=== PATIENT | female | born 1990 | race Caucasian/White ===

== ENCOUNTER 2017-09-24 18:15 | Emergency (ER) | payer SELFPAY | END 2017-09-24 20:11 | disposition home or self-care (01) | LOC: E/R 18:15 | DX: S29.011A Strain of muscle and tendon of front wall of thorax, initial encounter (principal); V49.40XA Driver injured in collision with unspecified motor vehicles in traffic accident, initial encounter | CPT/HCPCS: 71045; 73550; 99284-25 ==